=== PATIENT | female | born 1970 | race Caucasian/White ===

== ENCOUNTER → 2018-03-25 | Outpatient (CLI) | payer OTHER | END | disposition home or self-care (01) | LOC: US 07:05 | DX: K76.0 Fatty (change of) liver, not elsewhere classified (principal) | CPT/HCPCS: 76700 ==

== ENCOUNTER → 2018-04-26 | Outpatient (CLI) | payer OTHER | END | disposition home or self-care (01) | LOC: MAMMO 10:35 | DX: Z12.31 Encounter for screening mammogram for malignant neoplasm of breast (principal) | CPT/HCPCS: 77063; 77067 ==

== ENCOUNTER → 2019-05-04 | Outpatient (CLI) | payer OTHER ==
--- NOTE | 2019-05-05 14:24 | RAD ---
DATE: 05/04/2019 2:00 PM EXAM: MAMMO ALMA SCREENING BILATERAL HISTORY: routine screening evaluation. COMPARISON: 04/26/2018, 12/28/2016, 06/21/2015 Bilateral CC and MLO views of the breasts were performed. Bilateral breast tomosynthesis was performed in CC and MLO projections. This study was interpreted with the benefit of Computerized Aided Detection (CAD). Breast Density: SCATTERED The breast parenchyma shows scattered fibroglandular densities. Breast parenchyma level B FINDINGS: Benign calcifications are present. The parenchymal pattern appears stable. No suspicious masses, microcalcifications or architectural distortion is present to suggest malignancy in either breast. The visualized axillae are unremarkable. IMPRESSION: No mammographic evidence of malignancy. BI-RADS CATEGORY: 2 BENIGN FINDING(S) RECOMMENDED FOLLOW-UP: 12M 12 MONTH FOLLOW-UP Annual screening mammography is recommended, unless clinically indicated sooner based on symptoms or change in physical exam. PQRS compliance statement: Patient information was entered into a reminder system with a target due date for the next mammogram. Mammography is a sensitive method for finding small breast cancers, but it does not detect them all and is not a substitute for careful clinical examination. A negative mammogram does not negate a clinically suspicious finding and should not result in delay in biopsying a clinically suspicious abnormality. "Our facility is accredited by the [employer] Mammography Program."
== END | disposition home or self-care (01) ==
LOC: MAMMO 10:34
PROVIDERS: ATTEND Nurse Practitioner
DX: Z12.31 Encounter for screening mammogram for malignant neoplasm of breast (principal); N64.89 Other specified disorders of breast
CPT/HCPCS: 77063; 77067

== ENCOUNTER → 2019-05-16 | Outpatient (CLI) | payer OTHER ==
--- NOTE | 2019-05-16 15:55 | KCIC ---
EXAM: Left foot, 3 views. HISTORY: Pain. Twisting injury. COMPARISON: 12/14/2015. FINDINGS: 3 views of the left foot are obtained. There is no fracture, dislocation or subluxation. There is a stable suspected bone island within the second middle phalanx. IMPRESSION: No acute osseous finding. Electronically signed by: Brianna Gallo MD (05/16/2019 3:52 PM) [email or web address]
--- NOTE | 2019-05-17 08:53 | KCIC ---
Bone Densitometry History: Osteopenia, chronic use of seizure medications. Findings: Bone Densitometry was performed with dual photon absorption of the lumbar spine and left proximal femur. Lumbar Spine: Bone density is 1.126 g/cm2 for L1-L4. T-score is 0.7. Z-score is 1.4. Left total femur: Bone density is 0.902 g/cm2. T-score is -0.3. Z-score is 0.1. IMPRESSION: Bone mineral densities of the lumbar spine and left femur are normal. World Health Organization definition of osteoporosis and osteopenia for women: normal equals T score at or above -1.0 standard deviations; osteopenia equals T score between -1.0 and -2.5 standard deviations; osteoporosis equals T score at or below -2.5 standard deviations. Electronically signed by: Leonel Juárez MD (05/17/2019 8:50 AM) [id number]
== END | disposition home or self-care (01) ==
LOC: KCIC DEXA 14:48
PROVIDERS: ATTEND Orthopaedic Surgery
DX: S99.822A Other specified injuries of left foot, initial encounter (principal); M85.88 Other specified disorders of bone density and structure, other site; M79.672 Pain in left foot; Z79.899 Other long term (current) drug therapy; X58.XXXA Exposure to other specified factors, initial encounter; Y93.89 Activity, other specified; Y92.89 Other specified places as the place of occurrence of the external cause; Y99.8 Other external cause status
CPT/HCPCS: 73630; 77080

== ENCOUNTER → 2020-05-27 | Outpatient (CLI) | payer OTHER ==
[2019-06-28 18:13] VITALS: BP 136/78
[~2020-05-27] MED LIST: GADOTERATE 7.5 MMOL/15ML VIAL. IVP ONE; LEVE100S8 PO; MELO7.5T29 PO; PROP10TA PO; TRAM50TA PO
--- NOTE | 2020-05-27 10:12 | KCIC ---
Examination: MRI of the left elbow without and with IV contrast HISTORY: History of left elbow mass COMPARISON: None available Technique: Multiplanar, multisequence MR imaging of the left elbow was performed without and with IV contrast. IV contrast used was 14 cc of Dotarem. FINDINGS: The alignment of the elbow joint grossly appears unremarkable. The distal attachment of the biceps, brachialis tendon grossly appears intact. The distal attachment of the triceps tendon demonstrates mild increased signal at its attachment likely tendinosis. The attachment of the common extensor, common flexor tendon grossly appears intact. No evidence of obvious mass or enhancing lesion evident. Small elbow joint effusion. Examination limited due to motion artifact due to patient's tremors. The visualized left collateral ligament, radial collateral ligament and lateral ulnar collateral ligament appears intact. IMPRESSION: 1. No evidence of obvious mass or enhancing lesion. 2. Small elbow joint effusion. 3. Mild biceps tendinosis. 4. Examination limited due to motion artifact. Electronically signed by: Kvng Butts MD (05/27/2020 10:09 AM) [id number]
== END | disposition home or self-care (01) ==
LOC: KCIC MRI 07:52
PROVIDERS: ATTEND Orthopaedic Surgery
DX: M25.422 Effusion, left elbow (principal)
CPT/HCPCS: 73223; A9575

== ENCOUNTER → 2020-06-12 | Outpatient (CLI) | payer OTHER ==
[2019-06-28 18:13] VITALS: BP 136/78
[~2020-06-12] MED LIST changes: -GADOTERATE 7.5 MMOL/15ML VIAL. IVP ONE
== END | disposition home or self-care (01) ==
LOC: LAB 12:58
PROVIDERS: ATTEND Orthopaedic Surgery
DX: Z20.828 Contact with and (suspected) exposure to other viral communicable diseases (principal)
CPT/HCPCS: U0003-CS

== ENCOUNTER → 2020-07-09 | Day surgery (SDC) | payer OTHER ==
[~2020-07-09] VITALS: Ht 170.2 cm; Wt 79.5 kg
[~2020-07-09] MED LIST changes: +BUPIVACAINE MPF 0.5% 30 ML VIAL. ONE; +BUPIVACAINE-EPI 0.5%-1:200000 MPF 30 ML VIAL. ONE; +DEXAMETHASONE SOD PHOS 4 MG/ML VIAL ONE; +FLU VACC QS 2020-21(6MOS+)/PF 0.5 ML SYRINGE. VAX IM ONE; +HYDROmorphone 2 MG/ML VIAL IVP ONE; +IV RINGERS,LACTATED 1000ML 1,000 ML IV SCH; +LIDOCAINE 1% Multi-Dose 20 ML VIAL. ONE; +LIDOCAINE 1% PF 2 ML VIAL. ONE; +LIDOCAINE 2% PF 5 ML VIAL. ONE; +MIDAZOLAM HCL/PF 2 MG/2 ML VIAL. ONE; +MORPHINE SULFATE 10 MG/ML VIAL. IV ONE; +ONDANSETRON PF 4 MG/2 ML VIAL. IVP ONE; +ONDANSETRON PF 4 MG/2 ML VIAL. ONE; +OXYC1TAB15 PO; +PHENYLEPHRINE in 0.9% NACL PF 1 MG/10 ML SYRINGE. IV ONE; +PROM25TA10 PO; +PROPOFOL 10 MG/ML (20ML) VIAL. IV ONE; +SEVOFLURANE 61 TO 120 MINUTES. IH ONE; +ceFAZolin SODIUM IV Push 1 GM VIAL. IVP ONE
--- NOTE | 2020-07-09 15:15 | RAD ---
Right wrist 2 views INDICATION: Pain and deformity to the right wrist COMPARISON: Left wrist x-rays 12/14/2015. FINDINGS: Frontal and lateral views of the right wrist show an impacted comminuted fracture of the distal radial metaphysis and epiphysis with apex volar angulation and associated swan-neck deformity to the wrist soft tissues. The carpal bones are intact. The distal ulna is unremarkable. IMPRESSION: Acute apex volar angulated impacted fracture of the distal radial metaphysis with intra-articular extension. Electronically signed by: Sheeba Peterson MD (07/09/2020 3:13 PM) [id number]
[2020-07-09 17:04] LABS: BASO # 0.1 x10^3/uL (0.0-0.2); BASO % 1 % (0-3); EOS # 0.1 x10^3/uL (0.0-0.7); EOS % 1 % (0-3); HEMOGLOBIN 14.2 g/dL (12.0-15.5); LYMPH # 1.2 x10^3/uL (1.0-4.8); LYMPH % 11 % (24-48); MEAN CORPUSCULAR HEMOGLOBIN 31 pg (25-35); MEAN CORPUSCULAR HGB CONC 35 g/dL (31-37); MEAN CORPUSCULAR VOLUME 89 fL (79-100); MONO # 0.5 x10^3/uL (0.0-1.1); MONO % 5 % (0-9); NEUT # 9.6 x10^3/uL (1.8-7.7); NEUT % 83 % (31-73); PLATELET COUNT 204 x10^3/uL (140-400); RED CELL DISTRIBUTION WIDTH 12.8 % (11.5-14.5); WHITE BLOOD COUNT 11.5 x10^3/uL (4.0-11.0)
[2020-07-09 17:12] LABS: C-REACTIVE PROTEIN 0.5 mg/L (0-3.3); CALCIUM 9.4 mg/dL (8.5-10.1); CREATININE 0.9 mg/dL (0.6-1.0); GFR 66.5; POTASSIUM 4.2 mmol/L (3.5-5.1); URIC ACID 2.2 mg/dL (2.6-6.0)
--- NOTE | 2020-07-09 17:28 | PHYS DOC ---
Past Medical History Past Medical History: Migraines, Seizure Additional Past Medical Histor: basilar migraines, clotting disorder, autoimmune disorder, MTHFR gene Past Surgical History: Other Additional Past Surgical Histo: "heart implant", uterine ablasion Smoking Status: Never Smoker Alcohol Use: None Drug Use: None General Adult EDM: Chief Complaint: UPPER EXTREMITY INJURY HPI: HPI: Patient is a 49-year-old female who presents to the emergency room complaining of severe right wrist pain. Patient fell while cleaning her garage and landed on her outstretched arm. She had immediate pain. She is having difficulty moving her fingers and a tingling numb feeling. She denies any injuries. She has not had any nausea or vomiting. Denies loss of consciousness. She does feel woozy from the pain. Review of Systems: Review of Systems: General: Denies fever, chills, sweats, fatigue Eyes: Denies drainage, blurred vision, eye redness HENT: Denies rhinorrhea, sore throat, earache Respiratory: Denies cough, shortness of breath, wheezing Cardiac: Denies edema, palpitations, chest pain GI: Denies abdominal pain, Nausea, vomiting MSK: Denies back pain, neck pain Skin: Denies rash, jaundice Neuro: Denies headache, dizziness Psychiatric: Denies SI/HI Heart Score: Risk Factors: Risk Factors: DM, Current or recent (<one month) smoker, HTN, HLP, family history of CAD, obesity. Risk Scores: Score 0 - 3: 2.5% MACE over next 6 weeks - Discharge Home Score 4 - 6: 20.3% MACE over next 6 weeks - Admit for Clinical Observation Score 7 - 10: 72.7% MACE over next 6 weeks - Early Invasive Strategies Current Medications: Current Medications Medications (Trade) Dose Ordered Sig/Freddy Start Time Stop Time Status Last Admin Dose Admin Bupivacaine HCl (Sensorcaine Mpf 0.5%) 30 ml STK-MED ONCE 07/09/20 17:09 07/09/20 17:09 DC Hydromorphone HCl (Dilaudid) 1 mg 1X ONCE 07/09/20 17:00 07/09/20 17:01 DC 07/09/20 16:58 1 MG Influenza Virus Vaccine Quadrival (Fluzone Quad Syringe) 0.5 ml ONCE ONCE 07/09/20 15:45 07/09/20 15:46 DC 07/09/20 16:15 0.5 ML Lidocaine HCl (Lidocaine 1% 20ml Vial) 20 ml STK-MED ONCE 07/09/20 17:09 07/09/20 17:09 DC Morphine Sulfate (Morphine Sulfate) 5 mg 1X ONCE 07/09/20 16:15 07/09/20 16:17 DC 07/09/20 16:23 5 MG Ondansetron HCl (Zofran) 4 mg 1X ONCE 07/09/20 14:45 07/09/20 14:46 DC 07/09/20 14:51 4 MG Allergies: Allergies: Allergies Coded Allergies Type Severity Reaction Last Updated Verified clopidogrel Allergy Unknown 07/09/20 Yes Physical Exam: PE: General: Awake, alert, NAD. Well Nourished, well hydrated. Cooperative HEENT: Atraumatic, EOMI, PERRL, airway patent, moist oral mucosa Neck: Supple, trachea midline Respiratory: CTA bilaterally, normal effort, no wheezing/crackles CV: RRR, no murmur, cap refill <2 GI: Soft, nondistended, nontender, no masses MSK: Right wrist: Obvious deformity, decreased distal movement, 2+ radial pulse, normal distal cap refill, decreased sensation in hand Skin: Warm, dry, intact Neuro: A&O x3, speech NL, sensory and motor grossly intact, no focal deficits Psych: Normal affect, normal mood, not suicidal or homicidal Current Patient Data: Labs: Laboratory Tests Test 07/09/20 16:15 07/09/20 16:48 SARS-CoV-2 Antigen (Rapid) Negative (NEGATIVE) White Blood Count 11.5 x10^3/uL (4.0-11.0) H Red Blood Count 4.60 x10^6/uL (3.50-5.40) Hemoglobin 14.2 g/dL (12.0-15.5) Hematocrit 41.0 % (36.0-47.0) Mean Corpuscular Volume 89 fL (79-100) Mean Corpuscular Hemoglobin 31 pg (25-35) Mean Corpuscular Hemoglobin Concent 35 g/dL (31-37) Red Cell Distribution Width 12.8 % (11.5-14.5) Platelet Count 204 x10^3/uL (140-400) Neutrophils (%) (Auto) 83 % (31-73) H Lymphocytes (%) (Auto) 11 % (24-48) L Monocytes (%) (Auto) 5 % (0-9) Eosinophils (%) (Auto) 1 % (0-3) Basophils (%) (Auto) 1 % (0-3) Neutrophils # (Auto) 9.6 x10^3/uL (1.8-7.7) H Lymphocytes # (Auto) 1.2 x10^3/uL (1.0-4.8) Monocytes # (Auto) 0.5 x10^3/uL (0.0-1.1) Eosinophils # (Auto) 0.1 x10^3/uL (0.0-0.7) Basophils # (Auto) 0.1 x10^3/uL (0.0-0.2) Sodium Level 137 mmol/L (136-145) Potassium Level 4.2 mmol/L (3.5-5.1) Chloride Level 103 mmol/L (98-107) Carbon Dioxide Level 24 mmol/L (21-32) Anion Gap 10 (6-14) Blood Urea Nitrogen 15 mg/dL (7-20) Creatinine 0.9 mg/dL (0.6-1.0) Estimated GFR (Cockcroft-Gault) 66.5 Glucose Level 132 mg/dL (70-99) H Uric Acid 2.2 mg/dL (2.6-6.0) L Calcium Level 9.4 mg/dL (8.5-10.1) Creatine Kinase 71 U/L (26-192) C-Reactive Protein, Quantitative 0.5 mg/L (0-3.3) Thyroid Stimulating Hormone (TSH) 2.822 uIU/mL (0.358-3.74) Laboratory Tests 07/09/20 16:48 Laboratory Tests 07/09/20 16:48 Vital Signs: Vital Signs Date Time Temp Pulse Resp B/P (MAP) Pulse Ox O2 Delivery O2 Flow Rate FiO2 07/09/20 16:58 18 97 Room Air 07/09/20 14:38 98.4 70 131/79 (96) 98.4 EKG: EKG: [] Radiology/Procedures: Radiology/Procedures: [] Course & Med Decision Making: Course & Med Decision Making Pertinent Labs and Imaging studies reviewed. (See chart for details) Patient is a 49-year-old female presents to the emergency room with an obvious wrist deformity. X-ray shows radial fracture. Case was discussed with orthopedic surgery who will repaired the wrist in the OR. Dragon Disclaimer: Dragóscar Disclaimer: This electronic medical record was generated, in whole or in part, using a voice recognition dictation system. Departure Departure Impression: Primary Impression: Distal radial fracture Disposition: ADMITTED INPATIENT Condition: STABLE Referrals: SUELLEN MENDES (PCP) Justicifation of Admission Dx: Justifications for Admission: Justification of Admission Dx: Yes Fracture: Fracture KAI CAICEDO MD Jul 09, 2020 17:28
--- NOTE | 2020-07-09 17:42 | DISCH ---
DISCHARGE INSTRUCTIONS Condition on Discharge Condition on Discharge: Stable Activity After Discharge Activity Instructions for Disc: Other, see below Other activity instructions: keep elevated, wiggle fingers Bathing Instructions: Shower-keep dressing dry Weight Bearing Status after Di: Non weight bearing Diet after Discharge Diet after Discharge: Regular Wound Incision Care Wound/Incision Care: Ice to area for comfort, Keep wound/cast CDI, Keep wound elevated, Do not change dressing Contacting the DR. after DC Call your doctor for: Concerns you may have Follow-Up Follow up with: Cece in 2wks MALVIN GUERRERO II, MD Jul 09, 2020 17:42
--- NOTE | 2020-07-09 17:47 | PDOC2 ---
CONSULT Date of Consult Date of Consult DATE: 07/09/20 TIME: 17:45 Reason for Consult Reason for Consult: Right distal radius fracture Referring Physician Referring Physician: Gli Identification/Chief Complaint Chief Complaint Right wrist pain Source Source: Caregiver, Patient History of Present Illness Reason for Visit: Patient is a very pleasant [id number] 49-year-old female who tripped over a cord while at home and landed onto an outstretched right upper extremity, noting immediate pain and deformity. She is brought into the emergency department, accompanied by her , my colleague. They tell me that she is having wrist pain, denies any other injuries in this fall. No preceding symptoms. She denies any abnormal sensations in her fingers. Her pain is worse with any movement, but a little bit better at rest. She has received Dilaudid which is also helped her pain. Past Medical History Cardiovascular: Other (AICD) CENTRAL NERVOUS SYSTEM: Migraine, Seizure Heme/Onc: Other (M TF HR) Hepatobiliary: No pertinent hx Past Surgical History Past Surgical History: Pacemaker, Other (Uterine ablation) Family History Family History: Heart Disease Social History No ALCOHOL: none Drugs: None Lives: with Family Current Problem List Problem List Problems Medical Problems: (1) Distal radial fracture Status: Acute Current Medications Current Medications Current Medications Ondansetron HCl (Zofran) 4 mg 1X ONCE IVP Last administered on 07/09/20at 14:51; Start 07/09/20 at 14:45; Stop 07/09/20 at 14:46; Status DC Morphine Sulfate (Morphine Sulfate) 5 mg 1X ONCE IV Last administered on 07/09/20at 14:51; Start 07/09/20 at 14:45; Stop 07/09/20 at 14:46; Status DC Influenza Virus Vaccine Quadrival (Fluzone Quad Syringe) 0.5 ml ONCE ONCE VAX IM Last administered on 07/09/20at 16:15; Start 07/09/20 at 15:45; Stop 07/09/20 at 15:46; Status DC Morphine Sulfate (Morphine Sulfate) 5 mg 1X ONCE IV Last administered on 07/09/20at 16:23; Start 07/09/20 at 16:15; Stop 07/09/20 at 16:17; Status DC Hydromorphone HCl (Dilaudid) 1 mg 1X ONCE IVP Last administered on 07/09/20at 16:58; Start 07/09/20 at 17:00; Stop 07/09/20 at 17:01; Status DC Lidocaine HCl (Lidocaine 1% 20ml Vial) 20 ml STK-MED ONCE .ROUTE ; Start 07/09/20 at 17:09; Stop 07/09/20 at 17:09; Status DC Bupivacaine HCl (Sensorcaine Mpf 0.5%) 30 ml STK-MED ONCE .ROUTE ; Start 07/09/20 at 17:09; Stop 07/09/20 at 17:09; Status DC Active Scripts Active Reported Keppra (Levetiracetam) 100 Mg/1 Ml Solution 100 Mg PO BID Tramadol Hcl 50 Mg Tablet 50 Mg PO Q6HRS PRN Meloxicam 7.5 Mg Tablet 7.5 Mg PO DAILY Propranolol Hcl 10 Mg Tablet 10 Mg PO DAILY Allergies Allergies: Coded Allergies: clopidogrel (Verified Allergy, Unknown, 07/09/20) ROS General: No: Chills, Night Sweats, Fatigue, Malaise, Appetite, Other PSYCHOLOGICAL ROS: No: Anxiety, Behavioral Disorder, Concentration difficultie, Decreased libido, Depression, Disorientation, Hallucinations, Hostility, Irritablity, Memory difficulties, Mood Swings, Obsessive thoughts, Physical abuse, Sexual abuse, Sleep disturbances, Suicidal ideation, Other Eyes: No Blurry vision, No Decreased vision, No Double vision, No Dry eyes, No Excessive tearing, No Eye Pain, No Itchy Eyes, No Loss of vision, No Photophobia, No Scotomata, No Uses contacts, No Uses glasses, No Other HEENT: YES: Heacaches (Migraines); No: Visual Changes, Hearing change, Nasal congestion, Nasal discharge, Oral lesions, Sinus pain, Sore Throat, Epistaxis, Sneezing, Snoring, Tinnitus, Vertigo, Vocal changes, Other ALLERGY AND IMMUNOLOGY: No: Hives, Insect Bite Sensitivity, Itchy/Watery Eyes, Nasal Congestion, Post Nasal Drip, Seasonal Allergies, Other Hematological and Lymphatic: YES: Blood Clots; No: Bleeding Problems, Blood Transfusions, Brusing, Night Sweats, Pallor, Swollen Lymph Nodes, Other ENDOCRINE: No: Breast Changes, Galactorrhea, Hair Pattern Changes, Hot Flashes, Malaise/lethargy, Mood Swings, Palpitations, Polydipsia/polyuria, Skin Changes, Temperature Intolerance, Unexpected Weight Changes, Other Respiratory: No: Cough, Hemoptysis, Orthopnea, Pleuritic Pain, Shortness of breath, SOB with excertion, Sputum Changes, Stridor, Tachypnea, Wheezing, Other Cardiovascular: No Chest Pain, No Palpitations, No Orthopnea, No Paroxysmal Noc. Dyspnea, No Edema, No Lt Headedness, No Other Gastrointestinal: No Nausea, No Vomiting, No Abdominal Pain, No Diarrhea, No Constipation, No Melena, No Hematochezia, No Other Genitourinary: No Dysuria, No Frequency, No Incontinence, No Hematuria, No Retention, No Discharge, No Urgency, No Pain, No Flank Pain, No Other, No , No , No , No , No , No , No Musculoskeletal: Yes Joint Pain Neurological: No Behavorial Changes, No Bowel/Bladder ControlChng, No Confusion, No Dizziness, No Gait Disturbance, No Headaches, No Impaired Coord/balance, No Memory Loss, No Numbness/Tingling, No Seizures, No Speech Problems, No Tremors, No Visual Changes, No Weakness, No Other Skin: No Dry Skin, No Eczema, No Hair Changes, No Lumps, No Mole Changes, No Mottling, No Nail Changes, No Pruritus, No Rash, No Skin Lesion Changes, No Other, No Acne Physical Exam General: Alert, Oriented X3, mild distress HEENT: Atraumatic, EOMI Lungs: Other (Respirations are unlabored with symmetric chest rise) Heart: Regular rate Abdomen: Soft, No tenderness Extremities: No edema, Normal pulses Skin: No rashes Neuro: Normal speech, Strength at 5/5 X4 ext, Sensation intact Psych/Mental Status: Mental status NL, Mood NL MUSCULOSKELETAL: Other (Examination of her right upper extremity reveals she can wiggle her fingers. Normal sensation. No obvious gross deformity at distal radius region. No tenderness around her elbow.) Vitals VITALS Vital Signs Date Time Temp Pulse Resp B/P (MAP) Pulse Ox O2 Delivery O2 Flow Rate FiO2 07/09/20 16:58 18 97 Room Air 07/09/20 14:38 98.4 70 131/79 (96) 98.4 Labs Labs Laboratory Tests Test 07/09/20 16:15 07/09/20 16:48 SARS-CoV-2 Antigen (Rapid) Negative (NEGATIVE) White Blood Count 11.5 x10^3/uL (4.0-11.0) Red Blood Count 4.60 x10^6/uL (3.50-5.40) Hemoglobin 14.2 g/dL (12.0-15.5) Hematocrit 41.0 % (36.0-47.0) Mean Corpuscular Volume 89 fL (79-100) Mean Corpuscular Hemoglobin 31 pg (25-35) Mean Corpuscular Hemoglobin Concent 35 g/dL (31-37) Red Cell Distribution Width 12.8 % (11.5-14.5) Platelet Count 204 x10^3/uL (140-400) Neutrophils (%) (Auto) 83 % (31-73) Lymphocytes (%) (Auto) 11 % (24-48) Monocytes (%) (Auto) 5 % (0-9) Eosinophils (%) (Auto) 1 % (0-3) Basophils (%) (Auto) 1 % (0-3) Neutrophils # (Auto) 9.6 x10^3/uL (1.8-7.7) Lymphocytes # (Auto) 1.2 x10^3/uL (1.0-4.8) Monocytes # (Auto) 0.5 x10^3/uL (0.0-1.1) Eosinophils # (Auto) 0.1 x10^3/uL (0.0-0.7) Basophils # (Auto) 0.1 x10^3/uL (0.0-0.2) Sodium Level 137 mmol/L (136-145) Potassium Level 4.2 mmol/L (3.5-5.1) Chloride Level 103 mmol/L (98-107) Carbon Dioxide Level 24 mmol/L (21-32) Anion Gap 10 (6-14) Blood Urea Nitrogen 15 mg/dL (7-20) Creatinine 0.9 mg/dL (0.6-1.0) Estimated GFR (Cockcroft-Gault) 66.5 Glucose Level 132 mg/dL (70-99) Uric Acid 2.2 mg/dL (2.6-6.0) Calcium Level 9.4 mg/dL (8.5-10.1) Creatine Kinase 71 U/L (26-192) C-Reactive Protein, Quantitative 0.5 mg/L (0-3.3) Thyroid Stimulating Hormone (TSH) 2.822 uIU/mL (0.358-3.74) Laboratory Tests Test 07/09/20 16:15 07/09/20 16:48 SARS-CoV-2 Antigen (Rapid) Negative (NEGATIVE) White Blood Count 11.5 x10^3/uL (4.0-11.0) Red Blood Count 4.60 x10^6/uL (3.50-5.40) Hemoglobin 14.2 g/dL (12.0-15.5) Hematocrit 41.0 % (36.0-47.0) Mean Corpuscular Volume 89 fL (79-100) Mean Corpuscular Hemoglobin 31 pg (25-35) Mean Corpuscular Hemoglobin Concent 35 g/dL (31-37) Red Cell Distribution Width 12.8 % (11.5-14.5) Platelet Count 204 x10^3/uL (140-400) Neutrophils (%) (Auto) 83 % (31-73) Lymphocytes (%) (Auto) 11 % (24-48) Monocytes (%) (Auto) 5 % (0-9) Eosinophils (%) (Auto) 1 % (0-3) Basophils (%) (Auto) 1 % (0-3) Neutrophils # (Auto) 9.6 x10^3/uL (1.8-7.7) Lymphocytes # (Auto) 1.2 x10^3/uL (1.0-4.8) Monocytes # (Auto) 0.5 x10^3/uL (0.0-1.1) Eosinophils # (Auto) 0.1 x10^3/uL (0.0-0.7) Basophils # (Auto) 0.1 x10^3/uL (0.0-0.2) Sodium Level 137 mmol/L (136-145) Potassium Level 4.2 mmol/L (3.5-5.1) Chloride Level 103 mmol/L (98-107) Carbon Dioxide Level 24 mmol/L (21-32) Anion Gap 10 (6-14) Blood Urea Nitrogen 15 mg/dL (7-20) Creatinine 0.9 mg/dL (0.6-1.0) Estimated GFR (Cockcroft-Gault) 66.5 Glucose Level 132 mg/dL (70-99) Uric Acid 2.2 mg/dL (2.6-6.0) Calcium Level 9.4 mg/dL (8.5-10.1) Creatine Kinase 71 U/L (26-192) C-Reactive Protein, Quantitative 0.5 mg/L (0-3.3) Thyroid Stimulating Hormone (TSH) 2.822 uIU/mL (0.358-3.74) Images Images X-rays are reviewed. Comminuted intra-articular right distal radius fracture Assessment/Plan Assessment/Plan Closed right distal radius fracture. I did discuss with her and her that given how little swelling is present right now that I think it would be safe to proceed with operative fixation. We did discuss as well that given her concerns over caring for her children with special needs that she would really prefer to do this right away as well. I discussed the risks, benefits, alternatives including bleeding, nerve damage, infection, hardware problems down the road, pain, stiffness, expected rehab and recovery, need for additional surgery, among others. MALVIN GUERRERO II, MD Jul 09, 2020 17:47
--- NOTE | 2020-07-09 20:08 | PDOC4 ---
Operative Note Operative Note Date of procedure: 07/09/2020 Surgeon: Timothy Guerrero Lead Simulation Modeling Engineer: Rayshawn Desouza Preoperative diagnosis: Closed displaced Mal angulated intra-articular right distal radius fracture Postoperative diagnosis: Same Procedure performed: Open reduction internal fixation right distal radius fracture Anesthesia: General plus regional nerve block Findings: Acute fracture Blood loss: 10mL Complications: none Components inserted: Standard with volar distal radius locking plate, [employer] Reason for procedure: Patient is a very pleasant 49-year-old right-hand dominant female who tripped in her house and fell onto an outstretched right upper extremity. Please see my consult notes for further details. We had a discussion of the risks, benefits, and alternatives to the above surgery and she elected to proceed. Description of procedure: Patient was greeted in the preoperative area by myself or the correct extremity was verified and marked. She was taken to the operative suite after placement of a supraclavicular block by the Anesthesiologist and antibiotics started as she was brought back. Once in the operating, she was transferred gently supine to the operating table and secured to bed with all pressure points padded. The hand board was attached to the operating table. Nonsterile tourniquet was applied to her right upper extremit y. Right upper extremity was then scrubbed with chlorhexidine. We then proceeded to accomplish our usual sterile prep and drape. After this we conducted our standard preoperative timeout. I palpated for her radial artery and FCR tendon in April and in between these for my planned incision. I then exsanguinated the extremity with an Esmarch and insufflated tourniquet to 250 mmHg. I then incised skin with a scalpel and dissected subcutaneous tissue with tenotomy's, using bipolar cautery as needed for hemostasis. After this, I incised fascia in line with the skin incision and bluntly down to the pronator quadratus which was taken down. I then used a periosteal elevator to expose the volar distal radius region. I used a scalpel to release the brachioradialis. I then re-created the fracture deformity to remove the hematoma with a metal suction tip device. After exposing the fracture site, and distal radius anticipation my plate application, I perform a reduction maneuver consisting of traction at the radial column and some direct pressure from my fingers as well. I then confirmed appropriate reduction on C-arm I sized and placed my plate and confirmed good position as well and then provisionally pinned in place. I then placed my screws, checking extra-articular placement after each screw. I started with a nonlocking screw in the distal row proceeded to place locking screws at the remainder of the screw holes distal to the fracture site. I then placed a nonlocking screw proximal to the fracture site to secure the plate to the shaft, followed by 2 locking screws I then treated my first 1 out for a locking screw. I then took my final images and was satisfied with fracture reduction and hardware position. We then thoroughly irrigated out the operative field. We let tourniquet down. She had some venous oozing. Her radial artery was visibly palpating venous oozing was addressed with bipolar cautery. I then attempted to reapproximate pronator quadratus, but there been too much muscle damage and I was not able to re-oppose it at all. After this, I closed subcutaneous tissue with inverted interrupted 2-0 Vicryl followed by 3-0 nylon in mattress fashion for skin. All counts correct x2 prior to wound closure. At the conclusion, the arm and hand were cleansed and dried Xeroform and a sterile dressing was applied followed by a well-padded sugar tong splint with a mold. She tolerated surgery well. No complications. She was awakened from anesthesia and transferred on spine to the recovery cart and taken to PACU in stable and extubated condition. Postoperative plan is to discharge her home. Postoperative instructions were discussed with her . She will be nonweightbearing. She will follow-up with me in 2 weeks, sooner should a problem arise. TIMOTHY GUERRERO II, MD Jul 09, 2020 20:08
[2020-07-09 20:55] VITALS: BP 110/70
--- NOTE | 2020-07-09 23:27 | CONS ---
DATE OF CONSULTATION: 07/09/2020 ORTHOPEDIC CONSULTATION REASON FOR CONSULTATION: Right wrist pain and deformity. HISTORY OF PRESENT ILLNESS: The patient is a 49-year-old female who stepped backward and tripped on a vacuum light cleaner and landed on an outstretched right wrist behind her, had immediate onset of pain, deformity. Denies any loss of consciousness. No head injury and denies any injury to neck or back or other extremities aside from the right wrist pain, deformity. PAST MEDICAL HISTORY: Significant for complex migraines, seizure disorder that is treated as well as a history of MTHFR blood clotting disorder. PAST SURGICAL HISTORY: Significant for implantation of an Amplatzer device a few years ago for closure of an atrial septal defect. FAMILY HISTORY: Significant for a DVT in her father is an otherwise young healthy 30-year-old individual, two of her cousins had strokes, some history of autoimmune disease in her mom. 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 Never smoker. No nonprescription drug use and very infrequent alcohol consumption may be once a year. MEDICATIONS: List is reviewed. ALLERGIES: INCLUDE PLAVIX. REVIEW OF SYSTEMS: Significant for the right wrist pain, deformity. Again, she denies any head injury, loss of consciousness, visual changes. No other joint or extremity pain. She has had in the past few months some intermittent swelling in her extremities and a feeling of some nodules on the extensor aspects of her elbows that are not present currently and has had no autoimmune findings previously. She does have some paresthesia in the fingertips, especially index, long, and ring fingers of the right hand and severe pain with any motion. PHYSICAL EXAMINATION: GENERAL: Pleasant, cooperative 49-year-old female in comfortable at rest, but moderate distress with any movement of the wrist at all of her upper arm. HEENT: Atraumatic, normocephalic. HEART: Regular rate and rhythm. LUNGS: Clear to auscultation bilaterally. ABDOMEN: Benign. EXTREMITIES: Examination of the right upper extremity has obvious deformity of the wrist with dorsal angulation. Skin overlying is intact. She has a difficult time bending her fingers secondary to severe pain. Has slight paresthesia to the distal fingertips index, long, and ring, but capillary refill is intact and she has good palpable distal pulses bilaterally. She has normal examination of the contralateral wrist, bilateral elbows and shoulders and no current evidence of any nodules on palpation. She walks with a normal gait. IMAGING: X-rays show a displaced comminuted right distal radius fracture with significant dorsal angulation and does appear to be intra-articular extension. IMPRESSION: Displaced right distal radius fracture. TREATMENT PLAN: I had gone over with her the x-ray findings and the fact that the wrist is significantly angulated and recommended a surgical evaluation and treatment with plate and screw fixation of her wrist, specifically because given the comminution on the dorsal side of the wrist, closed reduction would be unexpected to be maintained and furthermore with any extension into the joint that it is important to align the joint as anatomically as possible to avoid postoperative stiffness, premature arthritic changes and there is a possibility of nonhealing, nerve or blood vessel damage, medical or other anesthetic complications among others even with healing as expected. All her questions were answered. She does want to proceed with surgical evaluation and treatment, which will be scheduled for 5:00 p.m. today as her last n.p.o. consisted of some coffee and some kefir yogurt between 10:30 and 11:00 a.m. therefore resulting in a 6-hour period in the interim. IZZY BUCKLEY MD DR: LORE/hakan JOB#: [id number] / [id number]
[2020-07-10 04:10] LABS: RHEUMATOID FACTOR <10.0 IU/mL (0.0-13.9)
[2020-07-10 16:10] LABS: C3 COMPLEMENT 113 mg/dL (82-167); C4 COMPLEMENT 24 mg/dL (14-44)
[2020-07-11 13:13] LABS: ALBUM 4.3 g/dL (2.9-4.4); ALPHA 1 0.2 g/dL (0.0-0.4); ALPHA 2 0.6 g/dL (0.4-1.0); BETA 0.8 g/dL (0.7-1.3); PROTEIN TOTAL 6.9 g/dL (6.0-8.5); SPEP AG RATIO 1.7 (0.7-1.7)
[2020-07-11 15:13] LABS: C ANCA <1:20 titer (Neg:<1:20); P ANCA <1:20 titer (Neg:<1:20)
[2020-07-11 22:08] LABS: ANA INTERP Positive (.)
[2020-07-12 00:08] LABS: CYCLIC CITRULLIN PEP AB 8 units (0-19)
== END | disposition home or self-care (01) ==
LOC: ER 14:38 → SDC 18:02
PROVIDERS: ATTEND Orthopaedic Surgery
PROC: 0PSH04Z Reposition Right Radius with Internal Fixation Device, Open Approach (ICD-10-PCS; principal; 2020-07-09 17:00)
DX: S52.571A Other intraarticular fracture of lower end of right radius, initial encounter for closed fracture (principal); G43.109 Migraine with aura, not intractable, without status migrainosus; W01.0XXA Fall on same level from slipping, tripping and stumbling without subsequent striking against object, initial encounter; Y93.89 Activity, other specified; Y92.098 Other place in other non-institutional residence as the place of occurrence of the external cause; Y99.8 Other external cause status; Z20.828 Contact with and (suspected) exposure to other viral communicable diseases; Z88.8 Allergy status to other drugs, medicaments and biological substances
CPT/HCPCS: 25608; 36415; 73100; 80048; 82550; 84165; 84443; 84550; 85025; 86038; 86140; 86160; 86162; 86200; 86235; 86256; 86431; 86812; 87426; 90471; 90686; A7015; C1713; J0690; J1100; J1170; J2250; J2270; J2370; J2405; J2704; J3490; J7120; U0003; 76000